=== PATIENT | female | born 1995 | race Caucasian/White ===

== ENCOUNTER → 2021-10-16 08:59 | Outpatient (BNVA) | payer BC, SELFPAY | PROVIDERS: PCP Obstetrics & Gynecology; Visit Provider Internal Medicine | DX: R76.8 Other specified abnormal immunological findings in serum (principal); M25.50 Pain in unspecified joint; R00.2 Palpitations; Z79.899 Other long term (current) drug therapy; Z11.59 Encounter for screening for other viral diseases | CPT/HCPCS: 36415; 81001; 82306; 82728; 83540; 84100; 84550; 85651; 86140; 86160; 86162; 86200; 86235; 86255; 86376; 86704; 86803; 87340; 99204 ==